=== PATIENT | female | born 1950 | race African-American/Black ===

== ENCOUNTER 2020-06-09 17:00 | Emergency (ER) | payer OTHER ==
--- NOTE | 2020-06-09 17:14 | PDOC ---
Rapid Medical Evaluation Time Seen by Provider: 06/09/20 17:12 Medical Evaluation: Allergies Allergy/AdvReac Type Severity Reaction Status Date / Time aspirin AdvReac Vomiting Verified 06/09/20 17:11 06/09/20 17:13 CC: edwin fall today, twisted ankle and knee, landed on left wrist Exam: noted edema to left wrist and suoperficial abrasion to left knee (hx lt TKR) Plan: xrays Discharge Disposition - Diagnosis Fall - Referrals - Patient Instructions - Post Discharge Activity
[2020-06-09 17:15] VITALS: BP 144/70; PULSE 84; TEMP 98.6; BMI 35.9
--- NOTE | 2020-06-09 17:50 | PDOC ---
History of Present Illness - General Chief Complaint: Injury Stated Complaint: FALL Time Seen by Provider: 06/09/20 17:12 - History of Present Illness Initial Comments: 06/09/20 17:44 70-year-old female with a past medical history of hypertension diabetes and dyslipidemia presents for evaluation of left wrist knee and ankle pain after a mechanical fall while coming out of a drugstore today. She did not hit her head. No post injury loss of consciousness nausea vomiting headache or visual changes. Past History - Medical History Allergies/Adverse Reactions: Allergies Allergy/AdvReac Type Severity Reaction Status Date / Time aspirin AdvReac Vomiting Verified 06/09/20 17:11 Home Medications: Ambulatory Orders Carvedilol 25 mg PO BID 05/14/14 Dexlansoprazole [Dexilant -] 60 mg PO DAILY 05/14/14 Diclofenac Sodium [Voltaren-Xr] 100 mg PO DAILY 05/14/14 Linagliptin/Metformin HCl [Jentadueto 2.5 mg-1000 mg Tab] 1 each PO BID 05/14/14 Rosuvastatin Calcium [Crestor] 10 mg PO DAILY 05/14/14 Amlodipine Bes/Olmesartan Med [Siomara 5-40 mg Tablet] 1 each PO DAILY 03/24/15 Aspirin [ASA -] 1 tab PO DAILY 04/02/19 Gabapentin [Neurontin] 1 tab PO TID 04/02/19 Acetaminophen W/ Codeine #3 [Tylenol # 3 -] 1 tab PO Q6H PRN #20 tablet MDD 6 06/09/20 Anemia: No Asthma: No Cancer: No Cardiac Disorders: Yes CVA: Yes (x 2 last one 2014) COPD: No CHF: No Dementia: No Diabetes: Yes GI Disorders: No Disorders: No HTN: Yes Hypercholesterolemia: Yes Liver Disease: No Seizures: No Thyroid Disease: No - Surgical History Abdominal Surgery: No Appendectomy: No Cardiac Surgery: Yes (CARDIAC CATH STENT 2005) Cholecystectomy: No Lung Surgery: No Neurologic Surgery: No Orthopedic Surgery: Yes (knee surgery) - Psycho-Social/Smoking History Smoking History: Never smoked Have you smoked in the past 12 months: No Number of Cigarettes Smoked Daily: 10 If you are a former smoker, when did you quit?: 2013 'Breaking Loose' booklet given: 05/17/14 - Substance Abuse Hx (Audit-C & DAST Scrn) How often the patient has a drink containing alcohol: Never Score: In Men: 4 or > Positive; In Women: 3 or > Positive: 0 Screen Result (Pos requires Nsg. Audit-10AR): Negative In the last yr the pt used illegal drug/Rx for NonMed reason: No Score: Yes response is considered Positive: 0 Screen Result (Positive result requires Nsg. DAST-10): Negative Review of Systems - Review of Systems ABD/GI: No: Nausea, Vomiting Musculoskeletal: Yes: Joint Pain Neurological: No: Headache *Physical Exam - Vital Signs Last Vital Signs Temp Pulse Resp BP Pulse Ox 98.6 F 84 16 144/70 100 06/09/20 17:12 06/09/20 17:12 06/09/20 17:12 06/09/20 17:12 06/09/20 17:12 - Physical Exam 06/09/20 17:45 Left wrist swelling mild ecchymosis purplish in fracture on the volar aspect of the left wrist with tenderness at the distal radius and ulnar and DRUJ. No gross sensorimotor deficits decreased range of motion in flexion extension supination and pronation upper extremity compartments are otherwise soft and nontender neurovascular intact. Left ankle skin color and temperature normal mild tenderness at the lateral aspect of the left ankle no tenderness at the proximal fibula or along its distal course medial lateral malleolus are nontender. No tenderness at the base of the fifth metatarsal or navicular. Neurovascular intact Left knee skin color and temperature normal 0 to 90 degrees stability normal after total knee arthroplasty. Thigh calf soft and nontender neurovascular intact Medical Decision Making - Medical Decision Making 06/09/20 17:46 X-rays of the left knee showed no evidence of fracture trauma or destructive process on radiograph left knee total arthroplasty is in good position. Patella appears out of alignment and lateral however this is not a sufficient lateral view. Left ankle x-rays no fracture trauma or destructive process Impacted distal radius fracture of the left wrist. Sugar tong splint applied to the left wrist neurovascular intact post splint application Aircast to the left ankle weight-bear as tolerated left ankle sprain. Follow-up with Ortho Tylenol 3 called into the pharmacy. Discharge - Discharge Information Problems reviewed: Yes Clinical Impression/Diagnosis: Fall, Left wrist fracture, Contusion of left knee, Left ankle sprain Condition: Stable Disposition: HOME - Admission No - Follow up/Referral Referrals: Carissa Villaseñor MD [Primary Care Provider] - Raul Urbina DO [Staff Physician] - - Patient Discharge Instructions Additional Instructions: Please use the Tylenol 3 as directed. Do not take any additional pain medication other than what you are prescribed. Return to the emergency room for worsening symptoms and without fail follow-up with orthopedic surgery in 1 to 2 days for further evaluation and treatment options. Please leave the splint on until seen by orthopedic surgery. You may remove the ankle air cast for hygiene. You may weight-bear as tolerated. Remain nonweightbearing on the left upper extremity. - Post Discharge Activity
== END 2020-06-09 18:05 | disposition home or self-care (01) ==
LOC: JERFT 17:00
DX: S62.92XA Unspecified fracture of left hand, initial encounter for closed fracture (principal); S80.02XA Contusion of left knee, initial encounter; S93.402A Sprain of unspecified ligament of left ankle, initial encounter
CPT/HCPCS: 73110-TC-LT-FY; 73562-TC-LT-FY; 73610-TC-LT-FY; 99285-25

== ENCOUNTER 2022-01-13 04:18 | Inpatient (IN) | payer OTHER ==
[2022-01-11 13:51] VITALS: BMI 31.1
[2022-01-13] MEDS ORDERED: ceFAZolin SODIUM 1 GM VIAL ONE (06:24)
[2022-01-13] MEDS ORDERED: CEFAZOLIN 2 GM in DEXTROSE 5%-WATER - 100 ML IVPB ONE (07:00)
[2022-01-13] MEDS ORDERED: PROPOFOL 20 ML ONE ×3 (07:21→07:23)
[2022-01-13] MEDS ORDERED: SUCCINYLCHOLINE CHLORIDE 200 MG/10 ML SYRINGE ONE (07:21)
[2022-01-13] MEDS ORDERED: ROCURONIUM BROMIDE 50 MG/5 ML SYRINGE ONE (07:22)
[2022-01-13] MEDS ORDERED: HEPARIN NA (PORCINE) 5,000 UNITS/ML 1ML VIAL ONE (07:32)
[2022-01-13] MEDS ORDERED: POVIDONE-IODINE OINTMENT 10% - 28.4 GM TUBE ONE (07:32)
[2022-01-13] MEDS ORDERED: MIDAZOLAM HCL 2 MG/2 ML SINGLE DOSE VIAL ONE (08:15)
[2022-01-13] MEDS ORDERED: ceFAZolin SODIUM 1 GM VIAL IVPB ONE (08:20)
[2022-01-13] MEDS ORDERED: ACETAMINOPHEN INJECTION 100 ML IVPB ONE (09:44)
[2022-01-13] MEDS ORDERED: NEOSTIGMINE METHYLSULFATE 0.5 MG/ML - 10 ML MDV ONE (10:03)
[2022-01-13] MEDS ORDERED: GLYCOPYRROLATE 0.2 MG/1 ML VIAL ONE (10:04)
[2022-01-13] MEDS ORDERED: LIDOCAINE HCL/PF 2% SDV 5ML VIAL ONE (10:04)
[2022-01-13] MEDS ORDERED: PHENYLEPHRINE HCL 10 MG/1 ML SINGLE DOSE VIAL ONE (10:04)
[2022-01-13] MEDS ORDERED: SUGAMMADEX SODIUM 200 MG/2 ML VIAL ONE (10:48)
[2022-01-13] MEDS ORDERED: ONDANSETRON 4 MG/2 ML VIAL IVPUSH PRN (11:00)
[2022-01-13] MEDS ORDERED: LACTATED RINGERS SOLUTION 1,000 ML IV SCH (11:00)
[2022-01-13] MEDS ORDERED: FENTANYL CITRATE/PF 50 MCG/ML VIAL ONE ×2 (11:12→12:24)
[2022-01-13] MEDS ORDERED: PATIENT'S OWN MEDICATION (NON-FORMULARY) (Acetaminophen [Tylenol] 325 MG Capsule) PO SCH (14:15)
[2022-01-13] MEDS ORDERED: ACETAMINOPHEN 325 MG TABLET (FP) PO PRN (14:45)
[2022-01-13] MEDS ORDERED: oxyCODONE HCL 5 MG TABLET PO PRN (14:45)
[2022-01-13] MEDS ORDERED: morphine SULFATE 4 MG/ML VIAL IVPUSH ONE (16:29)
[2022-01-13] MEDS ORDERED: LABETALOL HCL 5 MG/1 ML (100MG/20 ML VIAL) IVPUSH ONE (16:35)
[2022-01-13] MEDS ORDERED: ACETAMINOPHEN 1000 MG/100 ML BAG IVPB ONE (16:35)
[2022-01-13] MEDS: INSULIN SLIDING SCALE (NOVOLOG) 1 VIAL SQ SCH ×2 (17:00→22:00)
[2022-01-13] MEDS: metFORMIN HCL 500 MG TABLET (FP) PO SCH (17:18)
[2022-01-13] MEDS: CEFAZOLIN 2 GM in DEXTROSE 5%-WATER - 100 ML IVPB SCH (17:53)
[2022-01-13] MEDS ORDERED: hydrALAZINE HCL 20 MG/ML VIAL IVPUSH PRN (18:20)
[2022-01-13] MEDS: CARVEDILOL 25 MG TABLET (FP) PO SCH (21:12)
[2022-01-13] MEDS: MUPIROCIN 2% TOPICAL OINTMENT FOR DECOLONIZATION NS SCH (21:13)
[2022-01-13] MEDS ORDERED: ROSUVASTATIN CA 10 MG TABLET PO SCH (21:15)
[2022-01-13] MEDS ORDERED: CHLORHEXIDINE GLUCONATE 4% CLEANSER FOR DECOLONIZATION TP SCH (22:00)
[2022-01-13] MEDS ORDERED: PATIENT'S OWN MEDICATION (NON-FORMULARY) (Linagliptin/Metformin Hcl [Jentadueto 2.5 Mg-100 PO SCH (22:00)
[2022-01-14] MEDS: CEFAZOLIN 2 GM in DEXTROSE 5%-WATER - 100 ML IVPB SCH (01:36)
[2022-01-14] MEDS: metFORMIN HCL 500 MG TABLET (FP) PO SCH (06:23)
[2022-01-14] MEDS: INSULIN SLIDING SCALE (NOVOLOG) 1 VIAL SQ SCH ×2 (06:27→11:06)
[2022-01-14 07:18] LABS: BASO % 0.8 % (0-2.0); HEMATOCRIT 35.1 % (32.4-45.2); HEMOGLOBIN 11.4 GM/dL (10.7-15.3); LYMPH % 19.6 % (8-40); MCHC 32.5 g/dl (32.0-36.0); MEAN CELL VOLUME 86.3 fl (80-96); MEAN PLT VOLUME 8.1 fl (7.5-11.1); MONO % 12.8 % (3.8-10.2); NEUT % 63.8 % (42.8-82.8); PLATELET COUNT 248 10^3/uL (134-434); RBC 4.06 M/mm3 (3.60-5.2); RDW 14.5 % (11.6-15.6); WHITE BLOOD COUNT 6.8 K/mm3 (4.0-10.0)
[2022-01-14 07:25] LABS: ACTIVATED PTT 28.4 SECONDS (25.2-36.5)
[2022-01-14 07:59] LABS: CALCIUM 8.8 mg/dL (8.5-10.1)
[2022-01-14 08:00] LABS: BLOOD UREA NITROGEN 16.3 mg/dL (7-18); MAGNESIUM 1.7 mg/dL (1.8-2.4)
[2022-01-14 08:01] LABS: CREATININE 0.8 mg/dL (0.55-1.3); PHOSPHOROUS 3.7 mg/dL (2.5-4.9)
[2022-01-14 08:42] LABS: INR 1.06 (0.83-1.09); PROTHROMBIN TIME (PATIENT) 12.2 SEC (9.7-13.0)
[2022-01-14 09:39] VITALS: TEMP 98.6
[2022-01-14] MEDS: CARVEDILOL 25 MG TABLET (FP) PO SCH (09:51)
[2022-01-14] MEDS: MUPIROCIN 2% TOPICAL OINTMENT FOR DECOLONIZATION NS SCH (09:51)
[2022-01-14] MEDS ORDERED: amLODIPine BESYLATE 5 MG TABLET (FP) PO SCH (10:00)
[2022-01-14] MEDS ORDERED: LOSARTAN POTASSIUM 50 MG TABLET PO SCH (10:00)
[2022-01-14] MEDS ORDERED: AMLODIPINE BES PO SCH (10:00)
[2022-01-14] MEDS ORDERED: ASPIRIN 81 MG CHEWABLE TABLETS PO SCH (10:00)
[2022-01-14] MEDS ORDERED: PANTOPRAZOLE 40 MG TABLET PO SCH (10:00)
[2022-01-14] MEDS ORDERED: [UNRECOGNIZED DRUG - OTHER] PO SCH (10:00)
[2022-01-14] MEDS ORDERED: OLMESARTAN MED PO SCH (10:00)
[2022-01-14 14:16] VITALS: BP 104/60; PULSE 67
[2022-01-14] MEDS ORDERED: ROSUVASTATIN CA 10 MG TABLET PO SCH (22:00)
== END 2022-01-14 14:23 | disposition home or self-care (01) | DRG 39 ==
LOC: J2C 04:18 → JICU 14:27
PROVIDERS: ADMIT Surgery; ATTEND Surgery
PROC: 03CN0ZZ Extirpation of Matter from Left External Carotid Artery, Open Approach (ICD-10-PCS; 2022-01-13)
PROC: 03CL0ZZ Extirpation of Matter from Left Internal Carotid Artery, Open Approach (ICD-10-PCS; 2022-01-13)
PROC: 03UL0JZ Supplement Left Internal Carotid Artery with Synthetic Substitute, Open Approach (ICD-10-PCS; 2022-01-13)
PROC: 03CJ0ZZ Extirpation of Matter from Left Common Carotid Artery, Open Approach (ICD-10-PCS; principal; 2022-01-13 08:00)
DX: I65.22 Occlusion and stenosis of left carotid artery (principal); I10 Essential (primary) hypertension; I25.10 Atherosclerotic heart disease of native coronary artery without angina pectoris; E78.5 Hyperlipidemia, unspecified; E11.9 Type 2 diabetes mellitus without complications
CPT/HCPCS: 36415; 80048; 82962; 83605; 83735; 84100; 85025; 85610; 85730; 87040; 93005; 93010; 94010; 94760; J1644

== ENCOUNTER 2022-10-06 04:07 | Inpatient (IN) | payer OTHER ==
[2022-10-06] MEDS ORDERED: CEFAZOLIN 2 GM in DEXTROSE 5%-WATER - 100 ML IVPB ONE (07:00)
[2022-10-06] MEDS ORDERED: ceFAZolin SODIUM 1 GM VIAL ONE (07:06)
[2022-10-06] MEDS ORDERED: LIDOCAINE HCL 0.5%, 5 MG/ML (50mL SDVIAL) ONE (07:13)
[2022-10-06] MEDS ORDERED: HEPARIN NA (PORCINE) 5,000 UNITS/ML 1ML VIAL ONE ×2 (07:13→10:25)
[2022-10-06] MEDS ORDERED: ETOMIDATE 20 MG/10 ML VIAL IVPUSH ONE ×2 (07:23→07:32)
[2022-10-06] MEDS ORDERED: PROPOFOL 40 ML ONE (07:23)
[2022-10-06] MEDS ORDERED: LIDOCAINE HCL/PF 2% SDV 5ML VIAL ONE ×2 (07:23→07:31)
[2022-10-06] MEDS ORDERED: SUCCINYLCHOLINE CHLORIDE 200 MG/10 ML SYRINGE ONE (07:23)
[2022-10-06] MEDS ORDERED: ceFAZolin SODIUM 1 GM VIAL IVPB ONE (08:20)
[2022-10-06] MEDS ORDERED: PHENYLEPHRINE HCL 10 MG/1 ML SINGLE DOSE VIAL ONE ×2 (08:22→08:30)
[2022-10-06] MEDS ORDERED: SODIUM CHLORIDE 0.9% P/F 10 ML VIAL IJ ONE (08:23)
[2022-10-06] MEDS ORDERED: ROCURONIUM BROMIDE 50 MG/5 ML SYRINGE ONE (08:26)
[2022-10-06] MEDS ORDERED: ONDANSETRON 4 MG/2 ML VIAL ONE (08:44)
[2022-10-06] MEDS ORDERED: DEXAMETHASONE SOD PHOSPHATE 4 MG/1 ML VIAL ONE (08:44)
[2022-10-06] MEDS ORDERED: PROPOFOL 20 ML ONE (09:15)
[2022-10-06] MEDS ORDERED: PROTAMINE SULFATE 50 MG/5 ML VIAL ONE (10:17)
[2022-10-06] MEDS ORDERED: SUGAMMADEX SODIUM 200 MG/2 ML VIAL ONE (10:23)
[2022-10-06] MEDS ORDERED: ONDANSETRON 4 MG/2 ML VIAL IVPUSH PRN (10:54)
[2022-10-06] MEDS ORDERED: ACETAMINOPHEN 1000 MG/100 ML BAG IVPB ONE (10:59)
[2022-10-06] MEDS ORDERED: oxyCODONE HCL 5 MG TABLET PO PRN (11:00)
[2022-10-06] MEDS ORDERED: PATIENT'S OWN MEDICATION (NON-FORMULARY) (Acetaminophen [Tylenol] 325 MG Capsule) PO SCH (11:00)
[2022-10-06] MEDS ORDERED: LABETALOL HCL 20 MG/4 ML VIAL ONE (11:17)
[2022-10-06] MEDS ORDERED: LABETALOL HCL 5 MG/1 ML (100MG/20 ML VIAL) IVPUSH ONE (11:19)
[2022-10-06] MEDS ORDERED: FUROSEMIDE 20 MG TABLET (FP) PO PRN (14:18)
[2022-10-06] MEDS: LACTATED RINGERS SOLUTION 1,000 ML IV SCH (14:24)
[2022-10-06] MEDS: amLODIPine BESYLATE 5 MG TABLET (FP) PO SCH (15:20)
[2022-10-06] MEDS: DOCUSATE SODIUM 100 MG CAPSULE (FP) PO SCH (15:20)
[2022-10-06] MEDS: metFORMIN HCL 500 MG TABLET (FP) PO SCH (15:29)
[2022-10-06] MEDS ORDERED: LABETALOL HCL 20 MG/4 ML VIAL IVPUSH ONE (16:42)
[2022-10-06] MEDS ORDERED: LABETALOL HCL 20 MG/4 ML VIAL IVPUSH PRN (16:51)
[2022-10-06] MEDS: CEFAZOLIN SODIUM 2 GM in DEXTROSE 5%-WATER 100 ML IVPB SCH (17:53)
[2022-10-06] MEDS: CARVEDILOL 25 MG TABLET (FP) PO SCH (21:05)
[2022-10-06] MEDS ORDERED: PATIENT'S OWN MEDICATION (NON-FORMULARY) (Linagliptin/Metformin Hcl [Jentadueto 2.5 Mg-100 PO SCH (22:00)
[2022-10-06] MEDS ORDERED: TETRAHYDROZOLINE HCL EYE DROPS OU PRN (22:00)
[2022-10-07] MEDS: CEFAZOLIN SODIUM 2 GM in DEXTROSE 5%-WATER 100 ML IVPB SCH (02:13)
[2022-10-07] MEDS: metFORMIN HCL 500 MG TABLET (FP) PO SCH ×2 (06:22→16:41)
[2022-10-07 07:36] LABS: CALCIUM 9.4 mg/dL (8.5-10.1)
[2022-10-07 07:37] LABS: BLOOD UREA NITROGEN 19.7 mg/dL (7-18); MAGNESIUM 1.8 mg/dL (1.8-2.4)
[2022-10-07 07:40] LABS: PHOSPHOROUS 3.8 mg/dL (2.5-4.9)
[2022-10-07 08:17] LABS: HEMATOCRIT 36.4 % (32.4-45.2); HEMOGLOBIN 11.8 GM/dL (10.7-15.3); MCH 27.2 pg (25.7-33.7); MCHC 32.3 g/dl (32.0-36.0); MEAN CELL VOLUME 84.1 fl (80-96); MEAN PLT VOLUME 7.9 fl (7.5-11.1); PLATELET COUNT 253 10^3/uL (134-434); RBC 4.33 M/mm3 (3.60-5.2); RDW 15.3 % (11.6-15.6); WHITE BLOOD COUNT 8.8 K/mm3 (4.0-10.0)
[2022-10-07] MEDS: DOCUSATE SODIUM 100 MG CAPSULE (FP) PO SCH (09:20)
[2022-10-07] MEDS: CARVEDILOL 25 MG TABLET (FP) PO SCH ×2 (09:20→23:27)
[2022-10-07] MEDS: LOSARTAN POTASSIUM 50 MG TABLET PO SCH (09:20)
[2022-10-07] MEDS: amLODIPine BESYLATE 5 MG TABLET (FP) PO SCH (09:21)
[2022-10-07] MEDS: ASPIRIN COATED 81 MG TABLET.EC PO SCH (09:21)
[2022-10-07] MEDS: PANTOPRAZOLE 40 MG TABLET PO SCH (09:21)
[2022-10-07] MEDS: DICLOFENAC SODIUM 75 MG TABLET.DR PO SCH (09:21)
[2022-10-07] MEDS ORDERED: AMLODIPINE BES PO SCH (10:00)
[2022-10-07] MEDS ORDERED: [UNRECOGNIZED DRUG - OTHER] PO SCH (10:00)
[2022-10-07] MEDS ORDERED: OLMESARTAN MED PO SCH (10:00)
[2022-10-07] MEDS ORDERED: amLODIPine BESYLATE 5 MG TABLET (FP) PO SCH (10:00)
[2022-10-07] MEDS: LACTATED RINGERS SOLUTION 1,000 ML IV SCH (15:19)
[2022-10-07] MEDS ORDERED: ACETAMINOPHEN 500 MG TABLET (FP) PO PRN (16:21)
[2022-10-07] MEDS ORDERED: ROSUVASTATIN CA 20 MG TABLET PO SCH (22:00)
[2022-10-08 04:54] VITALS: RESP 18
[2022-10-08] MEDS: metFORMIN HCL 500 MG TABLET (FP) PO SCH ×2 (06:28→16:53)
[2022-10-08] MEDS: LOSARTAN POTASSIUM 50 MG TABLET PO SCH (10:51)
[2022-10-08] MEDS: DOCUSATE SODIUM 100 MG CAPSULE (FP) PO SCH (10:52)
[2022-10-08] MEDS: PANTOPRAZOLE 40 MG TABLET PO SCH (10:52)
[2022-10-08] MEDS: amLODIPine BESYLATE 5 MG TABLET (FP) PO SCH (10:52)
[2022-10-08] MEDS: DICLOFENAC SODIUM 75 MG TABLET.DR PO SCH (10:52)
[2022-10-08] MEDS: ASPIRIN COATED 81 MG TABLET.EC PO SCH (10:52)
[2022-10-08] MEDS: CARVEDILOL 25 MG TABLET (FP) PO SCH (10:52)
[2022-10-08 11:12] LABS: CALCIUM 9.1 mg/dL (8.5-10.1)
[2022-10-08 11:13] LABS: BLOOD UREA NITROGEN 27.7 mg/dL (7-18)
[2022-10-08 11:16] LABS: CREATININE 0.9 mg/dL (0.55-1.3)
[2022-10-08 14:42] VITALS: BP 88/47; PULSE 63; TEMP 98
== END 2022-10-08 17:34 | disposition home health service (06) | DRG 38 ==
LOC: J2C 04:07 → JICU 13:19 → J6S 10-07 18:15
PROVIDERS: ADMIT Surgery; ATTEND Surgery
PROC: 07B10ZX Excision of Right Neck Lymphatic, Open Approach, Diagnostic (ICD-10-PCS; 2022-10-06)
PROC: 03CK0ZZ Extirpation of Matter from Right Internal Carotid Artery, Open Approach (ICD-10-PCS; principal; 2022-10-06 08:00)
DX: I65.21 Occlusion and stenosis of right carotid artery (principal); J98.11 Atelectasis; I25.10 Atherosclerotic heart disease of native coronary artery without angina pectoris; I10 Essential (primary) hypertension; E78.5 Hyperlipidemia, unspecified; R59.0 Localized enlarged lymph nodes; E11.9 Type 2 diabetes mellitus without complications; Z86.73 Personal history of transient ischemic attack (TIA), and cerebral infarction without residual deficits; Z79.84 Long term (current) use of oral hypoglycemic drugs
CPT/HCPCS: 36415; 71045-TC-FY; 80048; 82962; 83735; 84100; 85027; 88304-TC; 88305-TC; 88311-TC; 94760; 94761; 97116-GP; 97161-GP; C1768; J1644